=== PATIENT | male | born 1995 | race Caucasian/White ===

== ENCOUNTER 2022-01-23 18:04 | Emergency (ER) | payer OTHER ==
[2022-01-23] MEDS ORDERED: Diphtheria,Pertussis(Acell),Tetanus Vaccine 0.5 ML Syringe IM ONE (18:20)
[2022-01-23] MEDS ORDERED: Bacitracin Oint 1 GM U/D Packet TOP ONE (19:06)
[2022-01-23] MEDS ORDERED: Amoxicillin/Clavulanate K 875-125 MG Tab PO ONE (19:06)
== END 2022-01-23 19:42 | disposition home or self-care (01) ==
LOC: MW.ED 18:04
DX: S81.852A Open bite, left lower leg, initial encounter (principal); Z23 Encounter for immunization; W54.0XXA Bitten by dog, initial encounter
CPT/HCPCS: 90471; 90715; 99283; A9270